=== PATIENT | female | born 1970 | race Caucasian/White ===

== ENCOUNTER → 2018-01-07 09:14 | Outpatient (CLI) | payer OTHER, SELFPAY ==
--- NOTE | 2018-01-07 | DI.MG.S_ITS ---
BILATERAL DIGITAL SCREENING MAMMOGRAM 3D/2D WITH CAD: 01/07/2018 CLINICAL: Routine screening. Baseline exam. No prior exams were available for comparison. The tissue of both breasts is heterogeneously dense. This may lower the sensitivity of mammography. Current study was also evaluated with a Computer Aided Detection (CAD) system. There are a grouped calcifications in the left breast at 2 o'clock posterior depth. No other significant masses, calcifications, or other findings are seen in either breast. IMPRESSION: INCOMPLETE: NEEDS ADDITIONAL IMAGING EVALUATION The grouped calcifications in the left breast are indeterminate. Spot magnification views are recommended. This exam was interpreted at Station ID: [id number]. NOTE: For mammograms, a report in lay terms will be sent to the patient. Approximately 15% of breast malignancies will not be visualized mammographically. In the management of a palpable breast mass, a negative mammogram must not discourage biopsy of a clinically suspicious lesion. Electronically Signed By: Aliza hui/jim:01/07/2018 11:07:19 copy to: Abby Larry, ph: [phone] letter sent: Additional Imaging Needed ACR BI-RADS Category 0: Incomplete 3340F
== END ==
PROVIDERS: Visit Provider Obstetrics & Gynecology
DX: Z12.31 Encounter for screening mammogram for malignant neoplasm of breast (principal)
CPT/HCPCS: 77063; 77067

== ENCOUNTER → 2018-01-20 09:24 | Outpatient (CLI) | payer OTHER, SELFPAY ==
--- NOTE | 2018-01-20 09:26 | DI.MG.S_ITS ---
UNILATERAL LEFT DIGITAL DIAGNOSTIC MAMMOGRAM 3D/2D WITH ADDITIONAL VIEWS: 01/20/2018 CLINICAL: Additional evaluation requested from prior study. Comparison is made [facility] The tissue of left breast is heterogeneously dense. This may lower the sensitivity of mammography. There are 0.3 cm x 0.3 cm x 0.3 cm grouped amorphous coarse calcifications in the left breast upper outer aspect posterior depth near the 2-3 o'clock position. This correlates with the prior mammographic exam. No other significant masses or calcifications are seen in the breast. IMPRESSION: PROBABLY BENIGN The 0.3 cm x 0.3 cm x 0.3 cm grouped amorphous coarse calcifications in the left breast are probably benign. A follow-up mammogram and possible ultrasound in 6 months is recommended to demonstrate stability. The patient is advised to monitor the area and to return sooner for reevaluation if she feels anything grow or change in her breasts. This exam was interpreted at Station ID: [id number]. NOTE: For mammograms, a report in lay terms will be sent to the patient. Approximately 15% of breast malignancies will not be visualized mammographically. In the management of a palpable breast mass, a negative mammogram must not discourage biopsy of a clinically suspicious lesion. Electronically Signed By: Portillo Friend M.D. ecl/:01/20/2018 15:36:05 letter sent: Followup Recommended ACR BI-RADS Category 3: Probably benign 3343F
== END ==
PROVIDERS: Visit Provider Obstetrics & Gynecology
DX: R92.1 Mammographic calcification found on diagnostic imaging of breast (principal)
CPT/HCPCS: 77065; G0279

== ENCOUNTER → 2018-10-04 14:39 | Outpatient (CLI) | payer OTHER, SELFPAY ==
--- NOTE | 2018-10-04 14:41 | DI.MG.S_ITS ---
UNILATERAL LEFT DIGITAL DIAGNOSTIC MAMMOGRAM 3D/2D SHORT-TERM FOLLOW-UP: 10/04/2018 CLINICAL: Patient returns for a 6 month follow up of the left breast. Comparison is made to exams dated: 01/20/2018 mammogram and 01/07/2018 mammogram - [facility]. The tissue of left breast is heterogeneously dense. This may lower the sensitivity of mammography. There are 0.3 cm x 0.3 cm x 0.3 cm grouped amorphous coarse calcifications in the left breast upper outer aspect posterior depth. These are not significantly changed and correlates with the prior exam. No other significant masses or calcifications are seen in the breast. IMPRESSION: PROBABLY BENIGN The 0.3 cm x 0.3 cm x 0.3 cm grouped amorphous coarse calcifications in the left breast remain stable and are probably benign. A follow-up mammogram in 6 months is recommended to demonstrate stability. The patient will also be due for her annual screening mammogram of the right breast at that time. This exam was interpreted at Station ID: [id number]. NOTE: For mammograms, a report in lay terms will be sent to the patient. Approximately 15% of breast malignancies will not be visualized mammographically. In the management of a palpable breast mass, a negative mammogram must not discourage biopsy of a clinically suspicious lesion. Electronically Signed By: Vikram Gardiner M.D. aty/:10/04/2018 16:56:58 letter sent: Followup Recommended ACR BI-RADS Category 3: Probably benign 3343F
== END ==
PROVIDERS: Visit Provider Obstetrics & Gynecology
DX: R92.8 Other abnormal and inconclusive findings on diagnostic imaging of breast (principal); R92.1 Mammographic calcification found on diagnostic imaging of breast
CPT/HCPCS: 77065; G0279

== ENCOUNTER → 2019-07-19 08:14 | Outpatient (CLI) | payer OTHER, SELFPAY ==
--- NOTE | 2019-07-19 08:16 | DI.MG.S_ITS ---
BILATERAL DIGITAL DIAGNOSTIC MAMMOGRAM 3D/2D SHORT-TERM FOLLOW-UP: 07/19/2019 CLINICAL: Short term follow up of the left breast, due for bilateral imaging. Comparison is made to exams dated: 10/04/2018 mammogram, 01/20/2018 mammogram, and 01/07/2018 mammogram - [facility]. The tissue of both breasts is heterogeneously dense. This may lower the sensitivity of mammography. There are 1.2 cm grouped fine punctate calcifications in the right breast at 12 o'clock anterior depth. These are seen in additional views. These are more prominent. There are 0.5 cm grouped punctate calcifications in the left breast at 2 o'clock posterior depth. These are not significantly changed. No other significant masses or calcifications are seen in either breast. IMPRESSION: PROBABLY BENIGN 1) The 1.2 cm grouped fine punctate calcifications in the right breast at 12 o'clock anterior depth are probably benign. A follow-up mammogram in 6 months is recommended. 2) The 0.5 cm grouped punctate calcifications in the left breast at 2 o'clock posterior depth are probably benign. A follow-up mammogram in 6 months is recommended. Exam findings and recommendation were conveyed to the patient by the Clinical Services Manager. This exam was interpreted at Station ID: [id number]. NOTE: For mammograms, a report in lay terms will be sent to the patient. Approximately 15% of breast malignancies will not be visualized mammographically. In the management of a palpable breast mass, a negative mammogram must not discourage biopsy of a clinically suspicious lesion. Electronically Signed By: Edward Kaplan M.D. slc/:07/19/2019 09:12:47 copy to: Diandra Li letter sent: Followup Recommended ACR BI-RADS Category 3: Probably benign 3343F
== END ==
PROVIDERS: Referring Provider Obstetrics & Gynecology; Visit Provider Obstetrics & Gynecology
DX: R92.8 Other abnormal and inconclusive findings on diagnostic imaging of breast (principal); R92.1 Mammographic calcification found on diagnostic imaging of breast
CPT/HCPCS: 77066; G0279

== ENCOUNTER → 2020-02-05 08:36 | Outpatient (CLI) | payer OTHER, SELFPAY ==
--- NOTE | 2020-02-05 | DI.MG.S_ITS ---
BILATERAL DIGITAL DIAGNOSTIC MAMMOGRAM 3D/2D SHORT-TERM FOLLOW-UP: 02/05/2020 CLINICAL: Bilateral Short term follow up. Comparison is made to exams dated: 07/19/2019 mammogram, 10/04/2018 mammogram, 01/20/2018 mammogram, and 01/07/2018 mammogram - [facility]. The tissue of both breasts is heterogeneously dense. This may lower the sensitivity of mammography. There are benign 1.2 cm grouped fine punctate calcifications in the right breast at 12 o'clock anterior depth. These are seen in additional views. These are not significantly changed. There are benign 0.5 cm grouped punctate calcifications in the left breast at 2 o'clock posterior depth. These are not significantly changed. No other significant masses or calcifications are seen in either breast. IMPRESSION: BENIGN These results and recommendations were discussed with the patient in person at the time of the exam by Dr. Friend. The patient was advised to monitor the area and to return sooner for reevaluation if she feels anything grow or change in her breasts. There is no mammographic evidence of malignancy. Return to annual mammogram screening schedule is recommended. This exam was interpreted at Station ID: [id number]. NOTE: For mammograms, a report in lay terms will be sent to the patient. Approximately 15% of breast malignancies will not be visualized mammographically. In the management of a palpable breast mass, a negative mammogram must not discourage biopsy of a clinically suspicious lesion. Electronically Signed By: Teto Musa acr/jim:02/05/2020 09:21:46 copy to: Diandra Li letter sent: Normal Exam ACR BI-RADS Category 2: Benign Finding(s) 3342F
== END ==
PROVIDERS: PCP Obstetrics & Gynecology; Referring Provider Obstetrics & Gynecology; Visit Provider Obstetrics & Gynecology
DX: R92.8 Other abnormal and inconclusive findings on diagnostic imaging of breast (principal); R92.1 Mammographic calcification found on diagnostic imaging of breast
CPT/HCPCS: 77066; G0279

== ENCOUNTER → 2020-06-20 07:04 | Outpatient (CLI) | payer OTHER, SELFPAY ==
[2020-06-20 07:53] LABS: Alanine Aminotransferase 27 IU/L (<35); Albumin 4.5 g/dL (3.5-5.0); Albumin Globulin Ratio 1.3 (1.0-2.8); Alkaline Phosphatase 68 U/L (38-126); Aspartate Aminotransferase 30 IU/L (14-36); BUN Creatinine Ratio 12.3 (6-22); Bilirubin Total 0.5 mg/dL (0.2-1.3); Blood Urea Nitrogen 9 mg/dL (7-17); Calcium 9.1 mg/dL (8.4-10.2); Carbon Dioxide 25 mmol/L (22-32); Chloride 105 mmol/L (98-107); Cholesterol 224 mg/dL (140-199); Estimated Glomerular Filt Rate > 60.0 mL/min (>60); Globulin 3.6 g/dL (1.7-4.1); Glucose 95 mg/dL (70-100); HDL Cholesterol 53 mg/dL (40-60); HEMOLYSIS < 15 (0-50); LDL Cholesterol Calculated 152 mg/dL (<100); Potassium 4.2 mmol/L (3.4-5.1); Sodium 139 mmol/L (137-145); Total Protein 8.1 g/dL (6.3-8.2); Triglycerides 94 mg/dL (35-150)
[2020-06-20 08:26] LABS: TSH w/ Reflex to FT4 5.57 uIU/mL (0.47-4.68)
[2020-06-20 08:52] LABS: Free T4, Direct Thyroxine 1.03 ng/dL (0.78-2.19)
[2020-06-20 09:20] LABS: Add Manual Diff / Slide Review NO; Basophils Absolute Auto 0 /uL (0-100); Basophils Percent Auto 0.7 % (0-2); Eosinophils Absolute Auto 100 /uL (0-450); Eosinophils Percent Auto 2.2 % (2-4); Hematocrit 38.9 % (36-46); Hemoglobin 12.8 g/dL (12.0-16.0); Lymphocytes Absolute Auto 1600 /uL (1100-4500); Lymphocytes Percent Auto 26.8 % (25-40); Mean Corpuscular Hemoglobin 28.5 PG (26-34); Mean Corpuscular Volume 86.4 fL (80-100); Monocytes Absolute Auto 500 /uL (0-900); Monocytes Percent Auto 7.8 % (3-14); Neutrophils Absolute Auto 3700 /uL (1500-7000); Neutrophils Percent Auto 62.5 % (50-75); Platelet Count 234 X10^3/uL (150-400); Red Cell Distribution Width 13.1 % (11.6-14.8); White Blood Cell Count 5.9 X10^3/uL (4.5-11.0)
[2020-06-21 17:28] LABS: Deamidated Gliadin Ab IgA 5 units (0-19); Deamidated Gliadin Ab IgG <1 units (0-19); Immunoglobulin A,Qn 291 mg/dL (87-352); t-Transglutaminase IgA <2 U/mL (0-3)
== END ==
PROVIDERS: PCP Physician Assistant; Referring Provider Physician Assistant; Visit Provider Physician Assistant
DX: Z13.6 Encounter for screening for cardiovascular disorders (principal); Z13.29 Encounter for screening for other suspected endocrine disorder; Z13.220 Encounter for screening for lipoid disorders; Z83.79 Family history of other diseases of the digestive system
CPT/HCPCS: 36415; 80053; 80061; 82784; 83516; 84439; 84443; 85025

== ENCOUNTER → 2020-07-15 15:45 | Outpatient (CLI) | payer OTHER, SELFPAY | PROVIDERS: PCP Physician Assistant; Referring Provider Physician Assistant; Visit Provider Physician Assistant | DX: E03.9 Hypothyroidism, unspecified (principal) | CPT/HCPCS: 36415; 84443 ==

== ENCOUNTER 2020-08-09 14:32 | Emergency (ER) | payer OTHER, SELFPAY ==
[2020-08-09 14:41] VITALS: BP 149/81; PULSE 114; TEMP 37; O2SAT 100
[2020-08-09 14:52] VITALS: BP 149/81; PULSE 82; RESP 19; O2SAT 99
--- NOTE | 2020-08-09 14:53 | ED.FALL ---
HPI - Fall General Chief Complaint: Fall Stated Complaint: Fell and bit through lip Time Seen by Provider: 08/09/20 14:37 History of Present Illness HPI Narrative: Otherwise healthy 49-year-old woman was taking at the wrist cycling when the ruled been flipped causing her to fall onto it with the majority of the impact in the lower lip. There is no loss of consciousness. She notes some abrasion to the surface of the lip and a 2-3 mm flap of skin on the buccal surface of the lower lip. No neck pain no other complaints at this time. Related Data Allergies Allergy/AdvReac Type Severity Reaction Status Date / Time No Known Drug Allergies Allergy Verified 08/09/20 14:51 Review of Systems Review of Systems Narrative: Pertinent positive and negative findings as per HPI Remainder of review of systems is otherwise unremarkable for Constitutional: Fevers, chills, weakness ENT: No sore throat, neck pain, ear pain CV: Chest pain, palpitations, Respiratory: Cough, wheeze, dyspnea GI: Nausea, vomiting, diarrhea, : Dysuria, hematuria, Patient History Social History Smoking Status: Never smoker Exam Narrative Exam Narrative: General: Alert appropriate in no acute distress HEENT: Some minor abrasions to the surface of her lower lip none of which are large enough for suturing. On the inner surface of her lower lip there is a 3 mm flap like laceration that is just barely through the mucosal layer. Does not go into the muscle layer. Number 24 twenty-five are slightly loose but not completely dislodged. No obvious dental fractures. Respiratory: Able to speak in full sentences, no obvious respiratory distress Skin: No obvious rashes, warm and dry Neurologic: Grossly intact no obvious asymmetries or abnormalities Psych: appropriate insight and affect, cooperative Initial Vital Signs Initial Vital Signs: Vital Signs Temperature 98.6 F 08/09/20 14:41 Pulse Rate 114 H 08/09/20 14:41 Blood Pressure 149/81 H 08/09/20 14:41 Pulse Oximetry 100 08/09/20 14:41 Course Vital Signs Vital signs: Vital Signs - 8 hr 08/09/20 14:41 08/09/20 14:52 Temperature 98.6 F Pulse Rate 114 H 82 Respiratory Rate 19 Blood Pressure 149/81 H 149/81 H Pulse Oximetry 100 99 MDM - Fall Medical Records Attestation: I reviewed the patient's medical records. [facility] Narrative Medical decision making narrative: Minor abrasion to the lower lip and small flap-like laceration to the inner buccal mucosa lower lip. Slight loosening of tooth number 24 in 25 without obvious mandibular fracture for alveolar bone structure injury. With shared decision-making we opted to not suture the small flap-like laceration on the inner lip. Given rapid healing of oral mucosa and the small wound with no deeper underlying structure involvement I suspect that the healing is going to be the same with or without a suture. Recommended Aquaphor to her lower lip to help with healing there. Recommended no foods that would require her to bite with her forward teeth until the those lower central teeth are no longer mobile. Also recommended rinsing her mouth out after eating and avoiding foods that are ?crumbly? to reduce the risk of food debris getting caught in the healing wound of the lower lip. With any signs of infection she will return. Discharge Plan Departure Patient Disposition: Home Clinical Impression: Fall Qualifiers: Encounter type: initial encounter Qualified Code(s): W19.XXXA - Unspecified fall, initial encounter Oral injury Qualifiers: Encounter type: initial encounter Qualified Code(s): S09.93XA - Unspecified injury of face, initial encounter Abrasion of lip Qualifiers: Encounter type: initial encounter Qualified Code(s): S00.511A - Abrasion of lip, initial encounter Activity Restrictions/Additional Instructions: Thank you for coming in today Your lip abrasions are not significant enough to need stitches today. I would recommend using something like Aquaphor ointment to keep the lips moist while that heals The small cut on the inside of your lip involves only this surface layer. The muscles underneath are not involved in it does not go all the way through your lip. We did discuss suturing this or not. I believe that is going to heal well no matter what we do and we opted to avoid suturing at this time Your to lower central teeth are slightly loose from the fall. Please avoid biting into food that would require the use of these teeth for the next day or 2 until they are no longer tender If you have any signs of infection or worsening symptoms, please feel free to return to the ER Referrals: Yessica Garner PA-C [Primary Care Provider] -
[2020-08-09 15:11] VITALS: BP 149/88; PULSE 72; O2SAT 99
== END 2020-08-09 15:12 | disposition home or self-care (01) ==
PROVIDERS: Emergency Provider Emergency Medicine; PCP Physician Assistant
DX: S00.511A Abrasion of lip, initial encounter (principal); S09.93XA Unspecified injury of face, initial encounter; W19.XXXA Unspecified fall, initial encounter
CPT/HCPCS: 99281

== ENCOUNTER → 2021-03-11 09:05 | Outpatient (CLI) | payer OTHER, SELFPAY ==
--- NOTE | 2021-03-11 | DI.MG.S_ITS ---
BILATERAL DIGITAL SCREENING MAMMOGRAM 3D/2D WITH CAD: 03/11/2021 CLINICAL: Routine screening. Family history of breast cancer. Comparison is made to exams dated: 02/05/2020 mammogram, 07/19/2019 mammogram, 10/04/2018 mammogram, 01/20/2018 mammogram, and 01/07/2018 mammogram - [facility]. The tissue of both breasts is heterogeneously dense. This may lower the sensitivity of mammography. Current study was also evaluated with a Computer Aided Detection (CAD) system. No significant masses, calcifications, or other findings are seen in either breast. There has been no significant interval change. IMPRESSION: NEGATIVE There is no mammographic evidence of malignancy. A 1 year screening mammogram is recommended. This exam was interpreted at Station ID: [id number]. NOTE: For mammograms, a report in lay terms will be sent to the patient. Approximately 15% of breast malignancies will not be visualized mammographically. In the management of a palpable breast mass, a negative mammogram must not discourage biopsy of a clinically suspicious lesion. Electronically Signed By: Gamaliel De La O M.D., jr/jim:03/11/2021 09:56:22 copy to: Diandra Li letter sent: Normal Exam ACR BI-RADS Category 1: Negative 3341F
== END ==
PROVIDERS: PCP Physician Assistant; Referring Provider Physician Assistant; Visit Provider Physician Assistant
DX: Z12.31 Encounter for screening mammogram for malignant neoplasm of breast (principal)
CPT/HCPCS: 77063; 77067

== ENCOUNTER → 2022-03-17 16:30 | Outpatient (CLI) | payer OTHER, SELFPAY ==
--- NOTE | 2022-03-17 16:31 | DI.MG.S_ITS ---
BILATERAL DIGITAL SCREENING MAMMOGRAM 3D/2D WITH CAD: 03/17/2022 CLINICAL: Routine screening. Family history of breast cancer. Comparison is made to exams dated: 03/11/2021 mammogram, 02/05/2020 mammogram, and 01/07/2018 mammogram - [facility]. Both breasts are heterogeneously dense, which may obscure small masses (category c / 51-75% glandular tissue). Current study was also evaluated with a Computer Aided Detection (CAD) system. There is a new asymmetry in the left breast posterior depth inferior region seen on the mediolateral tomographic oblique view only. No other significant masses, calcifications, or other findings are seen in either breast. IMPRESSION: INCOMPLETE: NEEDS ADDITIONAL IMAGING EVALUATION The new asymmetry in the left breast is indeterminate. Additional views with possible ultrasound are recommended. Based on the Tyrer Cuzick model (a risk assessment model) the patient's lifetime risk is 11.1% and her 10 year risk is 2.6%. According to the ACR, ACS, and NCCN guidelines, an annual breast MRI exam along with mammogram is recommended if the patient's lifetime risk is 20% or greater. This exam was interpreted at Station ID: [id number]. NOTE: For mammograms, a report in lay terms will be sent to the patient. Approximately 15% of breast malignancies will not be visualized mammographically. In the management of a palpable breast mass, a negative mammogram must not discourage biopsy of a clinically suspicious lesion. Electronically Signed By: Joe Richey M.D. lc/:03/18/2022 08:15:20 copy to: Diandra Li letter sent: Additional Imaging Needed ACR BI-RADS Category 0: Incomplete 3340F
== END ==
PROVIDERS: PCP Physician Assistant; Referring Provider Family Medicine; Visit Provider Family Medicine
DX: Z12.31 Encounter for screening mammogram for malignant neoplasm of breast (principal); Z80.3 Family history of malignant neoplasm of breast
CPT/HCPCS: 77063; 77067

== ENCOUNTER → 2022-04-05 07:18 | Outpatient (CLI) | payer OTHER, SELFPAY ==
[2022-04-05 08:57] LABS: Alanine Aminotransferase 25 IU/L (<35); Albumin 4.5 g/dL (3.5-5.0); Albumin Globulin Ratio 1.4 (1.0-2.8); Alkaline Phosphatase 56 U/L (38-126); Aspartate Aminotransferase 38 IU/L (14-36); BUN Creatinine Ratio 19.2 (6-22); Bilirubin Total 0.6 mg/dL (0.2-1.3); Blood Urea Nitrogen 14 mg/dL (7-17); Carbon Dioxide 26 mmol/L (22-32); Chloride 105 mmol/L (98-107); Cholesterol 202 mg/dL (140-199); Estimated Glomerular Filt Rate > 60 mL/min (>60); Globulin 3.3 g/dL (1.7-4.1); Glucose 99 mg/dL (70-100); HDL Cholesterol 48 mg/dL (40-60); HEMOLYSIS < 15 (0-50); LDL Cholesterol Calculated 138 mg/dL (<100); Sodium 141 mmol/L (137-145); Total Protein 7.8 g/dL (6.3-8.2); Triglycerides 81 mg/dL (35-150)
[2022-04-05 09:10] LABS: Vitamin D 25 Hydroxy (D3) 25.3 ng/mL (30.0-100.0)
[2022-04-05 09:23] LABS: TSH w/ Reflex to FT4 3.39 uIU/mL (0.47-4.68)
== END ==
PROVIDERS: PCP Family Medicine; Referring Provider Family Medicine; Visit Provider Family Medicine
DX: E78.5 Hyperlipidemia, unspecified (principal); E09.9 Drug or chemical induced diabetes mellitus without complications; E55.9 Vitamin D deficiency, unspecified
CPT/HCPCS: 36415; 80053; 80061; 82306; 84443

== ENCOUNTER → 2022-04-09 14:08 | Outpatient (CLI) | payer OTHER, SELFPAY ==
--- NOTE | 2022-04-09 14:10 | DI.MG.S_ITS ---
UNILATERAL LEFT DIGITAL DIAGNOSTIC MAMMOGRAM 3D/2D WITH ADDITIONAL VIEWS: 04/09/2022 CLINICAL: Additional evaluation requested from prior study. Comparison is made to exams dated: 03/17/2022 mammogram, 03/11/2021 mammogram, and 02/05/2020 mammogram - [facility]. The left breast is heterogeneously dense, which may obscure small masses (category c / 51-75% glandular tissue). There is a possible focal asymmetry in the left breast at 3 o'clock posterior depth. No other significant masses or calcifications are seen in the breast. IMPRESSION: INCOMPLETE: NEEDS ADDITIONAL IMAGING EVALUATION The possible focal asymmetry in the left breast is indeterminate. A targeted ultrasound of the left breast is recommended and will be performed immediately following this exam. Based on the Tyrer Cuzick model (a risk assessment model) the patient's lifetime risk is 11.1% and her 10 year risk is 2.6%. According to the ACR, ACS, and NCCN guidelines, an annual breast MRI exam along with mammogram is recommended if the patient's lifetime risk is 20% or greater. This exam was interpreted at Station ID: [id number]. NOTE: For mammograms, a report in lay terms will be sent to the patient. Approximately 15% of breast malignancies will not be visualized mammographically. In the management of a palpable breast mass, a negative mammogram must not discourage biopsy of a clinically suspicious lesion. Electronically Signed By: Aliza Egan M.D. lk/:04/09/2022 14:47:48 copy to: Diandra Li ACR BI-RADS Category 0: Incomplete 3340F
--- NOTE | 2022-04-09 14:10 | DI.US.S_ITS ---
LIMITED ULTRASOUND OF LEFT BREAST AND AXILLA: 04/09/2022 CLINICAL: Patient returns today to evaluate a focal asymmetry in the left breast. Comparison is made to exams dated: 04/09/2022 mammogram, 03/17/2022 mammogram, 03/11/2021 mammogram, 02/05/2020 mammogram, 07/19/2019 mammogram, and 10/04/2018 mammogram - [facility]. Color flow ultrasound of the left breast axilla was performed on the areas of interest. Peña scale images of the real-time examination were reviewed. There is a cluster of 2 mm to 1.5 cm anechoic cysts in the left breast at 3 o'clock middle depth. These correlate with mammography findings. There are related calcifications. Color flow imaging demonstrates that there is no vascularity present. IMPRESSION: BENIGN There is no sonographic evidence of malignancy. The clustered cysts in the left breast are benign. Return to annual mammogram screening schedule is recommended. This exam was interpreted at Station ID: [id number]. Electronically Signed By: Aliza Egan M.D. lk/:04/09/2022 16:56:09 copy to: Diandra Li letter sent: Normal Exam Ultrasound BI-RADS: 2 Benign
== END ==
PROVIDERS: PCP Family Medicine; Referring Provider Family Medicine; Visit Provider Family Medicine
DX: R92.8 Other abnormal and inconclusive findings on diagnostic imaging of breast (principal); N60.02 Solitary cyst of left breast
CPT/HCPCS: 76642; 77065; G0279

== ENCOUNTER → 2023-03-18 07:49 | Outpatient (CLI) | payer OTHER, SELFPAY ==
--- NOTE | 2023-03-18 07:50 | DI.MG.S_ITS ---
BILATERAL DIGITAL SCREENING MAMMOGRAM 3D/2D WITH CAD: 03/18/2023 CLINICAL: Routine screening. Family history of breast cancer. Comparison is made to exams dated: 04/09/2022 mammogram, 03/17/2022 mammogram, 03/11/2021 mammogram, 02/05/2020 mammogram, and 07/19/2019 mammogram - [facility]. Both breasts are heterogeneously dense, which may obscure small masses (category c / 51-75% glandular tissue). Current study was also evaluated with a Computer Aided Detection (CAD) system. No significant masses, calcifications, or other findings are seen in either breast. There has been no significant interval change. IMPRESSION: NEGATIVE There is no mammographic evidence of malignancy. A 1 year screening mammogram is recommended. Based on the Tyrer Cuzick model (a risk assessment model) the patient's lifetime risk is 11.3% and her 10 year risk is 2.8%. According to the ACR, ACS, and NCCN guidelines, an annual breast MRI exam along with mammogram is recommended if the patient's lifetime risk is 20% or greater. This exam was interpreted at Station ID: [id number]. NOTE: For mammograms, a report in lay terms will be sent to the patient. Approximately 15% of breast malignancies will not be visualized mammographically. In the management of a palpable breast mass, a negative mammogram must not discourage biopsy of a clinically suspicious lesion. Electronically Signed By: Vikram ramirez/jim:03/18/2023 08:14:39 copy to: Diandra Li letter sent: Normal Exam ACR BI-RADS Category 1: Negative 3341F
== END ==
LOC: MAMMO 07:50
PROVIDERS: PCP Physician Assistant; Referring Provider Physician Assistant; Visit Provider Physician Assistant
DX: Z12.31 Encounter for screening mammogram for malignant neoplasm of breast (principal); Z80.3 Family history of malignant neoplasm of breast; R92.333 Mammographic heterogeneous density, bilateral breasts
CPT/HCPCS: 77063; 77067

== ENCOUNTER → 2024-04-18 16:54 | Outpatient (CLI) | payer OTHER, SELFPAY ==
--- NOTE | 2024-04-18 | DI.MG.S_ITS ---
BILATERAL DIGITAL SCREENING MAMMOGRAM 3D/2D WITH CAD: 04/18/2024 CLINICAL: Routine screening. Family history of breast cancer. Comparison is made to exams dated: 03/18/2023 mammogram, 03/17/2022 mammogram, and 03/11/2021 mammogram - [facility]. The breasts are heterogeneously dense, which may obscure small masses (category c / 51-75% glandular tissue). Current study was also evaluated with a Computer Aided Detection (CAD) system. There are benign calcifications in the left breast. No significant masses, calcifications, or other findings are seen in either breast. There has been no significant interval change. IMPRESSION: BENIGN There is no mammographic evidence of malignancy. A 1 year screening mammogram is recommended. Based on the Tyrer Cuzick model (a risk assessment model) the patient's lifetime risk is 11.5% and her 10 year risk is 3.0%. According to the ACR, ACS, and NCCN guidelines, an annual breast MRI exam along with mammogram is recommended if the patient's lifetime risk is 20% or greater. This exam was interpreted at Station ID: [id number]. NOTE: For mammograms, a report in lay terms will be sent to the patient. Approximately 15% of breast malignancies will not be visualized mammographically. In the management of a palpable breast mass, a negative mammogram must not discourage biopsy of a clinically suspicious lesion. Electronically Signed By: iVkram ramirez/jim:04/19/2024 13:57:55 copy to: Diandra Li letter sent: Normal Exam ACR BI-RADS Category 2: Benign
== END ==
PROVIDERS: PCP Physician Assistant; Referring Provider Physician Assistant; Visit Provider Physician Assistant
DX: Z12.31 Encounter for screening mammogram for malignant neoplasm of breast (principal); Z80.3 Family history of malignant neoplasm of breast; R92.333 Mammographic heterogeneous density, bilateral breasts
CPT/HCPCS: 77063; 77067